=== PATIENT | female | born 1990 | race Caucasian/White ===

== ENCOUNTER 2016-11-28 20:55 | Emergency (ER) | payer MEDICAID ==
--- NOTE | 2016-11-28 21:18 | Emergency Department Record ---
History of Present Illness - General Chief Complaint: Fall Injury Stated Complaint: INJURED THROAT Time Seen by Provider: 11/28/16 21:09 Source: Patient Mode of Arrival: Ambulatory Limitations: No limitations - History of Present Illness Initial Comments: pt fell landing on table edge into neck. now she is hoarse and her neck feels like it has swelling Complaint: Fall Onset/Timin -: Minutes(s) Fall From: Standing When Fall Occurred: Just prior to arrival Fall Witnessed: Yes, by family Place Fall Occurred: Home Loss of Consciousness: None Prolonged Down Time?: No Symptoms Prior to Fall: None Location: Neck, Other Severity: Moderate Severity scale (1-10): 7 Quality: Aching Context: Tripped/slipped Associated Symptoms: Denies - [place] Coma Scale Eye Response: (4) Open spontaneously Motor Response: (6) Obeys commands Verbal Response: (5) Oriented [place] Total: 15 - Related Data Home Medications Medication Instructions Recorded Confirmed Last Taken No Home Med [NO HOME MEDS] 11/28/16 11/28/16 Unknown Allergies Allergy/AdvReac Type Severity Reaction Status Date / Time sulfamethoxazole Allergy DIFFICULTY Verified 11/28/16 21:01 [From Bactrim] BREATHING trimethoprim [From Bactrim] Allergy DIFFICULTY Verified 11/28/16 21:01 BREATHING Travel Screening - Travel/Exposure Within Last 30 Days Have you traveled within the last 30 days?: No - Travel/Exposure Within Last Year Have you traveled outside the [place] in the last year?: No - Travel Symptoms Symptom Screening: None Review of Systems Reviewed: No additional complaints except as noted below Constitutional: Reports: As per HPI. Denies: Chills, Fever, Malaise, Night sweats, Weakness, Weight change Eyes: Reports: As per HPI. Denies: Eye discharge, Eye pain, Photophobia, Vision change ENT: Reports: As per HPI. Denies: Congestion, Dental pain, Ear pain, Epistaxis , Hearing loss, Throat pain Respiratory: Reports: As per HPI. Denies: Cough, Dyspnea, Hemoptysis, Stridor, Wheezes Cardiovascular: Reports: As per HPI. Denies: Arrhythmia, Chest pain, Dyspnea on exertion, Edema, Murmurs, Orthopnea, Palpitations, Paroxysmal nocturnal dyspnea, Rheumatic Fever, Syncope Endocrine: Reports: As per HPI. Denies: Fatigue, Heat or cold intolerance, Polydipsia, Polyuria Gastrointestinal: Reports: As per HPI. Denies: Abdominal pain, Constipation, Diarrhea, Hematemesis, Hematochezia, Melena, Nausea, Vomiting Genitourinary: Reports: As per HPI. Denies: Abnormal menses, Discharge, Dyspareunia, Dysuria, Frequency, Hematuria, Incontinence, Retention, Urgency Musculoskeletal: Reports: As per HPI. Denies: Arthralgia, Back pain, Gout, Joint swelling, Myalgia, Neck pain Skin: Reports: As per HPI. Denies: Bruising, Change in color, Change in hair/ nails, Lesions, Pruritus, Rash Neurological: Reports: As per HPI. Denies: Abnormal gait, Confusion, Headache, Numbness, Paresthesias, Seizure, Tingling, Tremors, Vertigo, Weakness Psychiatric: Reports: As per HPI. Denies: Anxiety, Auditory hallucinations, Depression, Homicidal thoughts, Suicidal thoughts, Visual hallucinations Hematological/Lymphatic: Reports: As per HPI. Denies: Anemia, Blood Clots, Easy bleeding, Easy bruising, Swollen glands Past Medical History - SOCIAL HISTORY Smoking Status: Former smoker Alcohol Use: Occassional Drug Use: None - RESPIRATORY Hx Respiratory Disorders: No - CARDIOVASCULAR Hx Cardio Disorders: No - NEURO Hx Neuro Disorders: No - GI Hx GI Disorders: No - Hx Genitourinary Disorders: Yes Hx Kidney Stones: Yes - ENDOCRINE Hx Endocrine Disorders: No - MUSCULOSKELETAL Hx Musculoskeletal Disorders: No - PSYCH Hx Psych Problems: Yes Hx Anxiety: Yes Hx Depression: Yes (bipolar) - HEMATOLOGY/ONCOLOGY Hx Hematology/Oncology Disorders: No Family Medical History Any Significant Family History?: No Physical Exam - General General Appearance: Alert, Oriented x3, Cooperative, Mild distress - Head Head exam: Normal inspection - Eye Eye exam: Normal appearance, PERRL, EOMI Pupils: Normal accommodation - ENT ENT exam: Normal exam, Mucous membranes moist, Normal external ear exam, Normal orophraynx, TM's normal bilaterally Ear exam: Normal external inspection. negative: External canal tenderness Nasal Exam: Normal inspection. negative: Discharge, Sinus tenderness Mouth exam: Normal external inspection, Tongue normal Teeth exam: Normal inspection. negative: Dental caries Throat exam: Normal inspection. negative: Tonsillar erythema, Tonsillar exudate - Neck Neck exam: Full ROM, Tenderness (anteriorly) - Respiratory Respiratory exam: Normal lung sounds bilaterally. negative: Respiratory distress - Cardiovascular Cardiovascular Exam: Regular rate, Normal rhythm, Normal heart sounds - GI/Abdominal GI/Abdominal exam: Soft, Normal bowel sounds. negative: Tenderness - Rectal Rectal exam: Deferred - exam: Deferred - Extremities Extremities exam: Normal inspection, Full ROM, Normal capillary refill. negative: Tenderness - Back Back exam: Reports: Normal inspection, Full ROM. Denies: Muscle spasm, Rash noted, Tenderness - Neurological Neurological exam: Alert, CN II-XII intact, Normal gait, Oriented X3 - Psychiatric Psychiatric exam: Normal affect, Normal mood - Skin Skin exam: Dry, Intact, Normal color, Warm Course Vital Signs 11/28/16 20:59 Temperature 98.1 F Pulse Rate 20 L Respiratory 95 H Rate Blood Pressure 120/76 Pulse Ox 99 Disposition Disposition: Discharge Clinical Impression: Contusion of neck Qualifiers: Encounter type: initial encounter Qualified Code(s): S10.93XA - Contusion of unspecified part of neck, initial encounter Disposition: Home, Self-Care Condition: (1) Good Instructions: Contusion in Adults (ED) Additional Instructions: follow up with family doctor. return sooner if worse. ice to neck for 20 minutes every 4 hours. sleep elevated Forms: Patient Portal Access
--- NOTE | 2016-12-03 14:22 | CT SCAN REPORT ---
EXAM: NECK CT WITH IV CONTRAST HISTORY: SWOLLEN THROAT, INJURY TRIPPING OVER SOME TOYS, FELL ONTO TABLE HITTING HER THROAT. NO LOSS OF CONSCIOUSNESS. TECHNIQUE: Contiguous axial images from the skull base to the shelia were obtained after the uneventful intravenous administration of 100 ml of Omnipaque 300. Comparison: None. Encounter: Initial. FINDINGS: The skull base is unremarkable. The nasopharynx, oropharynx, and hypopharynx are unremarkable. The laryngeal structures are symmetric and otherwise normal. The hyoid bone and thyroid cartilage are intact. The vascular structures of the neck are patent with no atherosclerotic change. Mildly prominent lymph node in the level 2A distribution of the right internal jugular chain measuring up to 18 mm. Mildly prominent lymph node in the upper left internal jugular chain measuring up to 16 mm. The parotid gland, submandibular gland, and thyroid gland are unremarkable. The lung apices are clear. Increased attenuation in the anterior mediastinum likely due to thymic hyperplasia. IMPRESSION: 1. NO ACUTE PROCESS OF THE NECK IDENTIFIED. 2. PROBABLE THYMIC HYPERPLASIA. 3. MILDLY PROMINENT LYMPH NODES IN THE INTERNAL JUGULAR CHAINS LIKELY INCIDENTAL. JOB NUMBER: [id number] MTDD
== END 2016-11-28 21:58 | disposition home or self-care (01) ==
LOC: ER 20:55
DX: S10.93XA Contusion of unspecified part of neck, initial encounter (principal); W18.09XA Striking against other object with subsequent fall, initial encounter; Y92.009 Unspecified place in unspecified non-institutional (private) residence as the place of occurrence of the external cause
CPT/HCPCS: 99283 ×2; 70491; Q9967

== ENCOUNTER 2017-01-03 22:35 | Emergency (ER) | payer MEDICAID ==
--- NOTE | 2017-01-03 22:55 | Emergency Department Record ---
History of Present Illness - General Chief Complaint: General Stated Complaint: BLEEDING FROM RIGHT BREAST Time Seen by Provider: 01/03/17 22:50 Source: Patient Mode of Arrival: Ambulatory Limitations: No limitations - History of Present Illness Initial comments: 26 yo female presents to ED with a CC of bloody discharge from the right nipple. Patient reports that she does lactate intermittently, but has never had blood mixed with the nipple discharge. Patient denies any trauma to the breast, fevers, chills, or redness symptoms. Patient denies use of blood thinners or health problems other than psychiatric problems previously. Onset/Timin -: Hour(s) Location: Right, Chest Radiation: Non-Radiating Consistency: Intermittent Improves with: None Worsens with: Other (expression of milk from the breast) Associated Symptoms: Denies other symptoms Treatments Prior to Arrival: None - [place] Coma Scale Eye Response: (4) Open spontaneously Motor Response: (6) Obeys commands Verbal Response: (5) Oriented [place] Total: 15 - Related Data Home Medications Medication Instructions Recorded Confirmed Last Taken No Home Med [NO HOME MEDS] 11/28/16 11/28/16 Unknown Acetaminophen [Tylenol Extra 1,000 mg PO tab 12/01/16 Unknown Strength] Aspirin/Acetaminophen/Caffeine 1 each PO tab 12/01/16 Unknown [Excedrin Extra Strength Caplet] Allergies Allergy/AdvReac Type Severity Reaction Status Date / Time sulfamethoxazole Allergy DIFFICULTY Unverified 12/01/16 11:04 [From Bactrim] BREATHING trimethoprim [From Bactrim] Allergy DIFFICULTY Verified 11/28/16 21:01 BREATHING Review of Systems Constitutional: Denies: Chills, Fever, Malaise, Night sweats Eyes: Denies: Eye discharge, Eye pain ENT: Denies: Congestion, Ear pain, Epistaxis Respiratory: Denies: Cough, Dyspnea Cardiovascular: Denies: Chest pain, Dyspnea on exertion Endocrine: Denies: Fatigue, Heat or cold intolerance Gastrointestinal: Denies: Abdominal pain, Nausea, Vomiting Genitourinary: Denies: Dysuria, Frequency Musculoskeletal: Denies: Arthralgia, Back pain Skin: Reports: Other (bleeding from the right breast). Denies: Bruising, Change in color Neurological: Denies: Abnormal gait, Confusion, Headache, Seizure Psychiatric: Denies: Anxiety Hematological/Lymphatic: Denies: Anemia, Blood Clots Past Medical History - SOCIAL HISTORY Smoking Status: Former smoker Drug Use: None - RESPIRATORY Hx Respiratory Disorders: No - CARDIOVASCULAR Hx Cardio Disorders: No - NEURO Hx Neuro Disorders: No - GI Hx GI Disorders: No - Hx Genitourinary Disorders: Yes Hx Kidney Stones: Yes - ENDOCRINE Hx Endocrine Disorders: No - MUSCULOSKELETAL Hx Musculoskeletal Disorders: No - PSYCH Hx Psych Problems: Yes Hx Anxiety: Yes Hx Depression: Yes (bipolar) - HEMATOLOGY/ONCOLOGY Hx Hematology/Oncology Disorders: No Physical Exam - General General Appearance: Alert, Oriented x3, Cooperative Limitations: No limitations - Head Head exam: Atraumatic, Normocephalic, Normal inspection Head exam detail: negative: Abrasion, Contusion, Vargas's sign, General tenderness, Hematoma, Laceration - Eye Eye exam: Normal appearance. negative: Conjunctival injection, Periorbital swelling, Periorbital tenderness, Scleral icterus - ENT Ear exam: negative: Auricular hematoma, Auricular trauma Nasal Exam: negative: Active bleeding, Discharge, Dried blood, Foreign body Mouth exam: negative: Drooling, Laceration, Muffled voice, Tongue elevation - Neck Neck exam: Normal inspection. negative: Meningismus, Tenderness - Respiratory Respiratory exam: Normal lung sounds bilaterally, Other (small amount of blood- tinged expression from the breast with manipulation, no spontaneous bleeding is present.). negative: Rales, Respiratory distress, Rhonchi - Cardiovascular Cardiovascular Exam: Regular rate, Normal rhythm, Normal heart sounds - GI/Abdominal GI/Abdominal exam: Soft. negative: Rebound, Rigid, Tenderness - Rectal Rectal exam: Deferred - exam: Deferred - Extremities Extremities exam: Normal inspection. negative: Calf tenderness, Pedal edema, Tenderness - Back Back exam: Denies: CVA tenderness (R), CVA tenderness (L) - Neurological Neurological exam: Alert, Normal gait, Oriented X3 - Psychiatric Psychiatric exam: Normal affect, Normal mood - Skin Skin exam: Normal color. negative: Abrasion Type of lesion: negative: abrasion Course Vital Signs 01/03/17 22:49 Temperature 97.8 F Pulse Rate [ 92 H Pulse Ox Probe] Respiratory 18 Rate Blood Pressure 124/91 [Left Arm] Pulse Ox 98 - Reevaluation(s) Reevaluation #1: 01/03/17 22:56 I discussed with the patient that there is no evidence for infection/mastitis or breast lesions present. Patient was educated that there was no test from the emergency department that can be ordered to evaluated her symptoms further, and that follow-up with Abbie (PCP) is indicated in 3-5 days to ensure resolution of her symptoms as most cases resolve spontaneously. Patient appears stable for discharge at this time. Disposition Disposition: Discharge Clinical Impression: Bloody discharge from right nipple Disposition: Home, Self-Care Condition: (2) Stable Additional Instructions: Return to ED if your symptoms worsen or if you have any concerns. Follow-up with Abbie next week for further evaluation of your symptoms. Forms: Patient Portal Access Time of Disposition: 22:59
== END 2017-01-03 23:09 | disposition home or self-care (01) ==
LOC: ER 22:35
DX: N64.52 Nipple discharge (principal)
CPT/HCPCS: 99282

== ENCOUNTER 2017-10-25 12:40 | Emergency (ER) | payer MEDICAID ==
--- NOTE | 2017-10-25 14:13 | Emergency Department Record ---
History of Present Illness - General Chief complaint: Flank Pain Stated complaint: KIDNEY STONES/ADOMINAL AND BACK PAIN Time Seen by Provider: 10/25/17 13:50 Source: Patient Mode of Arrival: Ambulatory Limitations: No limitations - History of Present Illness Initial comments: The patient is here due to a 7 day hx of bilateral upper abdominal and flank cramping and pain. The symptoms are intermittent and she has had dysuria for the last 2 days. She denies any vaginal discharge, bleeding, fever, nausea, or vomiting but she has had minimal pelvic cramping also. The patient states she has a hx of kidney stones and feels it could be another one. MD Complaint: Other Onset/Timin -: Week(s) Radiation: LLQ, RLQ Severity scale (1-10): 7 Quality: Other Consistency: Constant Improves with: None Patient : No Associated Symptoms: Abdominal pain - Related Data Sexually active: No Previous Rx's Medication Instructions Recorded Naproxen [Naprosyn] 500 mg PO BID #14 tablet. 10/25/17 Allergies Allergy/AdvReac Type Severity Reaction Status Date / Time sulfamethoxazole Allergy DIFFICULTY Verified 10/25/17 14:58 [From Bactrim] BREATHING trimethoprim [From Bactrim] Allergy DIFFICULTY Verified 10/25/17 14:58 BREATHING Travel Screening - Travel/Exposure Within Last 30 Days Have you traveled within the last 30 days?: No Review of Systems Constitutional: Denies: Chills, Fever Eyes: Denies: Eye discharge ENT: Denies: Congestion Respiratory: Denies: Cough, Dyspnea Past Medical History - SOCIAL HISTORY Smoking Status: Former smoker Alcohol Use: None Drug Use: None - RESPIRATORY Hx Respiratory Disorders: No - CARDIOVASCULAR Hx Cardio Disorders: No - NEURO Hx Neuro Disorders: No - GI Hx GI Disorders: No - Hx Genitourinary Disorders: Yes Hx Kidney Stones: Yes - ENDOCRINE Hx Endocrine Disorders: No - MUSCULOSKELETAL Hx Musculoskeletal Disorders: No - PSYCH Hx Psych Problems: Yes Hx Anxiety: Yes Hx Depression: Yes (bipolar) - HEMATOLOGY/ONCOLOGY Hx Hematology/Oncology Disorders: No Family Medical History Any Significant Family History?: No Family Hx Comment (NOT TO BE USED IN PLACE OF ITEMS BELOW): denies Physical Exam - General General Appearance: Alert, Oriented x3, Cooperative, No acute distress (The patient is very clam and cooperative and nontoxic. She appears very comfortable at this time.) - Head Head exam: Atraumatic, Normocephalic - Eye Eye exam: Normal appearance, PERRL - Neck Neck exam: Normal inspection, Full ROM. negative: Tenderness - Respiratory Respiratory exam: Normal lung sounds bilaterally. negative: Respiratory distress - Cardiovascular Cardiovascular Exam: Regular rate, Normal rhythm, Normal heart sounds - GI/Abdominal GI/Abdominal exam: Soft, Normal bowel sounds. negative: Tenderness - Extremities Extremities exam: Normal inspection, Full ROM, Normal capillary refill. negative: Tenderness - Back Back exam: Reports: Normal inspection, Full ROM. Denies: Muscle spasm, Rash noted, Tenderness - Neurological Neurological exam: Alert. negative: Motor sensory deficit Course Vital Signs 10/25/17 13:59 Temperature 97.7 F Pulse Rate [ 72 Pulse Ox Probe] Respiratory 16 Rate Blood Pressure 118/69 [Left Arm] Pulse Ox 98 - Reevaluation(s) Reevaluation #1: Prior to discharge I did discuss the issues with the patient. Her lab work and CT and urine are all WNL's so I strongly doubt a kidney stone. She is to take the naprosyn for pain and use an OTC laxative and see her PCP for recheck this week. 10/25/17 16:05 Medical Decision Making - Data Complexity MDM Data: Labs Ordered and/or Reviewed, X-Ray Ordered and/or Reviewed - Lab Data Result diagrams: 10/25/17 13:10 10/25/17 13:10 - Radiology Data Radiology results: Report reviewed (CT: Neg for stone or hydro.) Disposition Disposition: Discharge Clinical Impression: Acute flank pain Disposition: Home, Self-Care Condition: (2) Stable Instructions: Flank Pain (ED) Additional Instructions: Please take the Naprosyn as directed and also an OTC laxative. Please see your Family doctor this week for recheck. Return to the ER for any worsening symptoms. Prescriptions: Naproxen [Naprosyn] 500 mg PO BID #14 tablet.dr Forms: Patient Portal Access Time of Disposition: 15:42 Quality - Quality Measures Quality Measures: N/A - Blood Pressure Screening View Details: Yes Does Patient Have Any of the Following: No Blood Pressure Classification: Pre-Hypertensive BP Reading Systolic Measurement: 130 Diastolic Measurement: 74 Screening for High Blood Pressure: < Pre-Hypertensive BP, F/U Documented > [ [id number]] Pre-Hypertensive Follow-up Interventions: Referral to alternative/primary care provider.
[2017-10-25 14:23] LABS: BASO % 0.8 % (0-6); EOS % 4.5 % (0-6); GRAN % 53.2 % (47-80); HEMATOCRIT 41.7 % (35.0-47.0); HEMOGLOBIN 13.7 gm/dl (11.6-16.0); LYMPH % 33.2 % (16-45); MEAN CELL VOLUME 89.9 fl (81-97); MEAN CORPUSCULAR HEMOGLOBIN 29.5 pg (27-33); MEAN CORPUSCULAR HGB CONC 32.9 g/dl (32-36); MEAN PLATELET VOLUME 10.8 fl (7.4-10.4); MONO % 8.3 % (0-9); PLATELET COUNT 237 K/uL (130-400); RED BLOOD COUNT 4.64 M/uL (3.80-5.40); RED CELL DISTRIBUTION WIDTH 12.8 % (11.5-14.5); URINE APPEARANCE CLOUDY; URINE BILIRUBIN NEGATIVE (NEGATIVE); URINE BLOOD NEGATIVE (NEGATIVE); URINE COLOR YELLOW; URINE GLUCOSE (UA) NEGATIVE (NEGATIVE); URINE KETONE NEGATIVE (NEGATIVE); URINE LEUKOCYTE ESTERASE NEGATIVE (NEGATIVE); URINE NITRITE NEGATIVE (NEGATIVE); URINE PROTEIN NEGATIVE (NEGATIVE); URINE UROBILINOGEN 0.2 E.U./dL (0.20 - 1.00); WHITE BLOOD COUNT W/O DIFF 6.2 K/uL (4.2-12.2)
[2017-10-25 14:27] LABS: HCG,QUALITATIVE URINE NEGATIVE (NEGATIVE)
[2017-10-25 14:38] LABS: BLOOD UREA NITROGEN 13 mg/dL (6-20)
[2017-10-25 14:39] LABS: BILIRUBIN,TOTAL < 0.20 mg/dL (0.2-1.0); CREATININE 0.8 mg/dL (0.5-0.9); EST GLOMERULAR FILTRATION RATE > 60 mL/min; TOTAL PROTEIN 7.6 g/dL (6.6-8.7)
[2017-10-25 14:41] LABS: GLUCOSE,RANDOM 78 mg/dL (74-109)
[2017-10-25 14:44] LABS: ALBUMIN 4.4 g/dL (4.0-5.0); ALKALINE PHOSPHATASE 82 U/L (35-104); ALT/SGPT 14 U/L (<33); AST/SGOT 14 U/L (10.0-35.0); LIPASE 26 U/L (13-60)
[2017-10-25 14:45] LABS: BILIRUBIN,DIRECT < 0.2 mg/dL (0-0.3)
[2017-10-25] MEDS ORDERED: KETOROLAC 30 MG/ML VIAL IVP ONE (14:55)
--- NOTE | 2017-10-26 09:15 | CT SCAN REPORT ---
EXAM: CT OF THE ABDOMEN AND PELVIS WITHOUT CONTRAST HISTORY: BILATERAL FLANK PAIN FOR ONE WEEK. TECHNIQUE: Thin collimation helical CT examination of the abdomen and pelvis was performed without oral or intravenous contrast administration. Lack of oral and IV contrast utilization limits evaluation of the bowel and solid viscera respectively. Comparison: CT of the abdomen and pelvis without contrast dated 09/22/15. FINDINGS: There is minimal dependent atelectasis in each lung base. No pleural or pericardial effusion. The heart is not enlarged. The liver, spleen, pancreas, and left adrenal gland remain normal in appearance. There is redemonstration of a small mass rising from the posterior limb of the right adrenal gland superiorly. This measures 1.2 x 1.4 cm. It has a density of 2 Hounsfield units and is consistent with a lipid rich adenoma. It is unchanged. The gallbladder is unremarkable and no biliary ductal dilatation is seen. The kidneys remain normal in size, position and are smoothly marginated. There are two nonobstructing calculi within the left kidney, that at the mid level measures 2 mm in diameter and that at the lower pole level measures 3 mm. These are not significantly changed. No other nephrolithiasis nor renal mass. The renal collecting systems are not dilated. No intrinsic urinary bladder abnormality is seen. The uterus is normal in size and positioned in the midline. The ovaries are not enlarged. Trace free fluid is noted in the cul-de-sac. This is nonspecific , but likely physiologic. No bowel dilatation nor bowel wall thickening. The appendix is visualized and normal in appearance. A small fat filled umbilical/periumbilical hernia is present, stable. No new lytic or blastic bone lesion. IMPRESSION: 1. TRACE FREE FLUID IN THE CUL-DE-SAC IS NONSPECIFIC, BUT LIKELY PHYSIOLOGIC. 2. THERE ARE A COUPLE NONOBSTRUCTING CALCULI REDEMONSTRATED IN THE LEFT KIDNEY , STABLE. NO OBSTRUCTIVE UROPATHY. 3. NORMAL APPENDIX. 4. STABLE SMALL RIGHT ADRENAL ADENOMA. JOB NUMBER: [id number] [facility]
== END 2017-10-25 15:57 | disposition home or self-care (01) ==
LOC: ER 12:40
DX: R10.84 Generalized abdominal pain (principal); R30.0 Dysuria; Z87.442 Personal history of urinary calculi
CPT/HCPCS: 99284 ×2; 96374; 83690; 85025; 80076; 80048; 81003; 81025; 74176; J1885

== ENCOUNTER 2019-06-24 18:57 | Emergency (ER) | payer MEDICAID ==
[2019-06-24] MEDS ORDERED: KETOROLAC 30 MG/ML VIAL IM ONE (19:31)
[2019-06-24] MEDS ORDERED: ORPHENADRINE CITRATE 60MG/2ML VIAL IM ONE (19:31)
--- NOTE | 2019-06-24 19:43 | Emergency Department Record ---
History of Present Illness - General Chief Complaint: Back Pain/Injury Stated Complaint: BACK PAIN/HURTS TO BREATH Time Seen by Provider: 06/24/19 19:22 Source: Patient Mode of Arrival: Ambulatory Limitations: No limitations - History of Present Illness Initial Comments: pt turned to back out of driveway and felt a pop in her r thoracic area and has had pain ever since. it hurts to move, to touch and to take a deep breath. Complaint: Back pain Onset/Timin -: Minutes(s) Similar Symptoms Previously: No Place: Home Radiation: None Severity: Severe Severity scale (1-10): 9 Quality: Sharp, Stabbing Consistency: Constant Improves With: Deep breaths/cough, Movement, Sitting upright Worsens With: Walking Context: Bending Associated Symptoms: Difficulty walking Treatment Prior to Arrival Comment:: denies - Related Data Home Medications Medication Instructions Recorded Confirmed Last Taken Cabergoline 1 mg PO WEEKLY 06/24/19 06/24/19 06/21/19 08:00 Previous Rx's Medication Instructions Recorded Naproxen [Naprosyn] 500 mg PO BID #14 tablet. 10/25/17 Cyclobenzaprine HCl [Flexeril] 10 mg PO TID #14 tablet 06/24/19 Ibuprofen [Motrin] 800 mg PO Q8H PRN #20 tab 06/24/19 Allergies Allergy/AdvReac Type Severity Reaction Status Date / Time sulfamethoxazole Allergy DIFFICULTY Verified 10/25/17 14:58 [From Bactrim] BREATHING trimethoprim [From Bactrim] Allergy DIFFICULTY Verified 10/25/17 14:58 BREATHING Travel Screening - Travel/Exposure Within Last 30 Days Have you traveled within the last 30 days?: No - Travel/Exposure Within Last Year Have you traveled outside the [place] in the last year?: No - Additonal Travel Details Have you been exposed to anyone with a communicable illness?: No - Travel Symptoms Symptom Screening: Joint & Muscle Aches Review of Systems Reviewed: No additional complaints except as noted below Constitutional: Reports: As per HPI. Denies: Chills, Fever, Malaise, Night sweats, Weakness, Weight change Eyes: Reports: As per HPI. Denies: Eye discharge, Eye pain, Photophobia, Vision change ENT: Reports: As per HPI. Denies: Congestion, Dental pain, Ear pain, Epistaxis, Hearing loss, Throat pain Respiratory: Reports: As per HPI. Denies: Cough, Dyspnea, Hemoptysis, Stridor, Wheezes Cardiovascular: Reports: As per HPI. Denies: Arrhythmia, Chest pain, Dyspnea on exertion, Edema, Murmurs, Orthopnea, Palpitations, Paroxysmal nocturnal dyspnea, Rheumatic Fever, Syncope Endocrine: Reports: As per HPI. Denies: Fatigue, Heat or cold intolerance, Polydipsia, Polyuria Gastrointestinal: Reports: As per HPI. Denies: Abdominal pain, Constipation, Diarrhea, Hematemesis, Hematochezia, Melena, Nausea, Vomiting Genitourinary: Reports: As per HPI. Denies: Abnormal menses, Discharge, Dyspareunia, Dysuria, Frequency, Hematuria, Incontinence, Retention, Urgency Musculoskeletal: Reports: As per HPI, Back pain. Denies: Arthralgia, Gout, Joint swelling, Myalgia, Neck pain Skin: Reports: As per HPI. Denies: Bruising, Change in color, Change in hair/nails, Lesions, Pruritus, Rash Neurological: Reports: As per HPI. Denies: Abnormal gait, Confusion, Headache, Numbness, Paresthesias, Seizure, Tingling, Tremors, Vertigo, Weakness Psychiatric: Reports: As per HPI. Denies: Anxiety, Auditory hallucinations, Depression, Homicidal thoughts, Suicidal thoughts, Visual hallucinations Hematological/Lymphatic: Reports: As per HPI. Denies: Anemia, Blood Clots, Easy bleeding, Easy bruising, Swollen glands Past Medical History - SOCIAL HISTORY Smoking Status: Former smoker Alcohol Use: None Drug Use: None - RESPIRATORY Hx Respiratory Disorders: No Comment:: States hx of brain tumor dx 1 yr ago controlled by medication - CARDIOVASCULAR Hx Cardio Disorders: No - NEURO Hx Neuro Disorders: No - GI Hx GI Disorders: No - Hx Genitourinary Disorders: Yes Hx Kidney Stones: Yes - ENDOCRINE Hx Endocrine Disorders: No - MUSCULOSKELETAL Hx Musculoskeletal Disorders: No - PSYCH Hx Psych Problems: Yes Hx Anxiety: Yes Hx Depression: Yes (bipolar) - HEMATOLOGY/ONCOLOGY Hx Hematology/Oncology Disorders: No Comment:: states brain tumor dx 1 yr ago controlled by medication Family Medical History Any Significant Family History?: Yes Family Hx Comment (NOT TO BE USED IN PLACE OF ITEMS BELOW): States heavy hx of CA in family Physical Exam - General General Appearance: Alert, Oriented x3, Cooperative, Mild distress - Head Head exam: Normal inspection - Eye Eye exam: Normal appearance, PERRL, EOMI Pupils: Normal accommodation - ENT ENT exam: Normal exam, Mucous membranes moist, Normal external ear exam, Normal orophraynx Ear exam: Normal external inspection. negative: External canal tenderness Nasal Exam: Normal inspection. negative: Discharge, Sinus tenderness Mouth exam: Normal external inspection, Tongue normal Teeth exam: Normal inspection. negative: Dental caries Throat exam: Normal inspection. negative: Tonsillar erythema, Tonsillar exudate - Neck Neck exam: Normal inspection, Full ROM. negative: Tenderness - Respiratory Respiratory exam: Normal lung sounds bilaterally. negative: Respiratory distress - Cardiovascular Cardiovascular Exam: Regular rate, Normal rhythm, Normal heart sounds - GI/Abdominal GI/Abdominal exam: Soft, Normal bowel sounds. negative: Tenderness - Rectal Rectal exam: Deferred - exam: Deferred - Extremities Extremities exam: Normal inspection, Full ROM, Normal capillary refill. negative: Tenderness - Back Back exam: Reports: Muscle spasm, Paraspinal tenderness, Tenderness. Denies: Full ROM, Rash noted, Vertebral tenderness - Neurological Neurological exam: Alert, CN II-XII intact, Normal gait, Oriented X3 - Psychiatric Psychiatric exam: Normal affect, Normal mood - Skin Skin exam: Dry, Intact, Normal color, Warm Course Vital Signs 06/24/19 19:01 Temperature 97.8 F Pulse Rate [ 92 H Pulse Ox Probe] Respiratory 24 Rate Blood Pressure 121/77 [Left Arm] Pulse Ox 99 - Reevaluation(s) Reevaluation #1: 06/24/19 20:48 xrays neg Disposition Disposition: Discharge Clinical Impression: Strain of thoracic back region Disposition: Home, Self-Care Condition: (1) Good Instructions: Thoracic Back Strain (ED) Additional Instructions: follow up with family doctor. ice to sore area. return sooner if worse Prescriptions: Cyclobenzaprine HCl [Flexeril] 10 mg PO TID #14 tablet Ibuprofen [Motrin] 800 mg PO Q8H PRN #20 tab PRN Reason: Pain - Moderate (5-7) Forms: Patient Portal Access Quality - Quality Measures Quality Measures: N/A - Blood Pressure Screening Does Patient Have Any of the Following: No Blood Pressure Classification: Pre-Hypertensive BP Reading Systolic Measurement: 121 Diastolic Measurement: 77 Screening for High Blood Pressure: < Pre-Hypertensive BP, F/U Documented > [G8950] Pre-Hypertensive Follow-up Interventions: Follow-up with rescreen every year.
[2019-06-24] MEDS ORDERED: HYDROCODONE/APAP 5/325MG TABLET PO ONE (20:52)
--- NOTE | 2019-06-26 20:34 | RADIOLOGY REPORT ---
EXAM: RIBS, RIGHT W/PA CHEST HISTORY: INJURED RIGHT RIBS IN THE BACK. TECHNIQUE: AP and oblique views right ribs, PA chest. COMPARISON: No prior rib series. Chest x-ray 02/18/16. FINDINGS: The right ribs appear intact with no definite fracture identified. No pneumothorax is seen and no pleural effusion evident on the chest x-ray. IMPRESSION: RIGHT RIBS APPEAR NEGATIVE. JOB NUMBER: [id number] [facility]
== END 2019-06-24 21:05 | disposition home or self-care (01) ==
LOC: ER 18:57
DX: S29.012A Strain of muscle and tendon of back wall of thorax, initial encounter (principal); X50.0XXA Overexertion from strenuous movement or load, initial encounter; Y92.008 Other place in unspecified non-institutional (private) residence as the place of occurrence of the external cause
CPT/HCPCS: 99284 ×2; 96372; 71101; J1885; J2360